=== PATIENT | female | born 2005 | race Caucasian/White ===

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

== ENCOUNTER 2023-03-09 14:07 | Emergency (ER) | payer OTHER ==
[2023-03-09 15:50] LABS: SARS-CoV-2 NAA Rapid Test Not Detected (NotDetected)
[2023-03-09] MEDS ORDERED: Ketorolac Tromethamine 30 MG/ML VIAL ONE (15:54)
== END 2023-03-09 17:27 | disposition home or self-care (01) ==
LOC: CSHERS 14:07
DX: J06.9 Acute upper respiratory infection, unspecified (principal); Z20.822 Contact with and (suspected) exposure to COVID-19
CPT/HCPCS: 96372; 99283; J1885

== ENCOUNTER 2024-04-05 12:05 | Emergency (ER) | payer SELFPAY | END 2024-04-05 14:10 | disposition home or self-care (01) | LOC: CSHERS 12:05 | DX: J02.9 Acute pharyngitis, unspecified (principal); R05.9 Cough, unspecified; F17.290 Nicotine dependence, other tobacco product, uncomplicated | CPT/HCPCS: 87081; 87430; 99283 ==

== ENCOUNTER 2024-04-14 20:17 | Emergency (ER) | payer SELFPAY | END 2024-04-14 21:10 | disposition home or self-care (01) | LOC: CSHERS 20:17 | DX: J20.9 Acute bronchitis, unspecified (principal); F17.290 Nicotine dependence, other tobacco product, uncomplicated | CPT/HCPCS: 99283 ==

== ENCOUNTER 2025-01-12 18:20 | Emergency (ER) | payer OTHER, SELFPAY | END 2025-01-12 18:53 | disposition home or self-care (01) | LOC: CSHERS 18:20 | DX: Z32.00 Encounter for pregnancy test, result unknown (principal); Z87.891 Personal history of nicotine dependence | CPT/HCPCS: 99281 ==